=== PATIENT | male | born 1995 | race Caucasian/White ===

== ENCOUNTER 2023-10-11 12:07 | Emergency (ER) | payer OTHER ==
[~2023-10-11] VITALS: Ht 175.3 cm; Wt 98.3 kg
[2023-10-11] MEDS ORDERED: DERMABOND TOPICAL SKIN ADHESIVE TOP ONE (17:00)
[2023-10-11] MEDS ORDERED: IBUPROFEN 800 MG TAB PO ONE (17:20)
[2023-10-11 17:56] VITALS: BP 146/81; TEMP 98.2; O2SAT 100
== END 2023-10-11 18:14 | disposition home or self-care (01) ==
LOC: M ED 12:07
DX: S01.111A Laceration without foreign body of right eyelid and periocular area, initial encounter (principal); M54.2 Cervicalgia; W22.8XXA Striking against or struck by other objects, initial encounter; Y92.9 Unspecified place or not applicable

== ENCOUNTER 2025-02-27 11:49 | Emergency (ER) | payer OTHER ==
[~2025-02-27] VITALS: Ht 170.2 cm; Wt 100.3 kg
[2025-02-27] MEDS ORDERED: IBUP200T46 PO (11:58)
[2025-02-27] MEDS ORDERED: ALBU2.5V10 INH (11:59)
[2025-02-27 18:35] VITALS: BP 130/61; TEMP 98.3; O2SAT 100
== END 2025-02-27 18:36 | disposition home or self-care (01) ==
LOC: M ED 11:49
DX: M54.50 Low back pain, unspecified (principal); J45.909 Unspecified asthma, uncomplicated; Z79.52 Long term (current) use of systemic steroids; Z79.1 Long term (current) use of non-steroidal anti-inflammatories (NSAID)